=== PATIENT | male | born 1960 | race Caucasian/White ===

== ENCOUNTER 2020-04-15 11:23 | Inpatient (IN) ==
[2020-04-15 13:06] LABS: Basophils % 0.1 % (0.0-0.8); Hematocrit 47.3 VOL% (42.0-52.0); Hemoglobin 15.9 GM/DL (14.0-18.0); Immature Granulocytes % 0.8 %; Immature Granulocytes Absolute 0.06 #; Lymphocytes # 0.5 10*3/uL (1.4-4.0); Lymphocytes % 5.8 % (21.2-54.2); Mean Corpuscular HGB Conc 33.6 GM/DL (32-36); Mean Corpuscular Volume 90.3 FL (87-102); Mean Platelet Volume 8.2 FL (9.6-12.0); Monocytes % 2.7 % (1.7-12.7); Neutrophils % 90.6 % (38.7-73.9); Platelet Count 205 T/CUMM (130-400); Red Blood Count 5.24 MC/CUMM (3.8-5.5); White Blood Count 7.8 T/CUMM (4-12)
[2020-04-15] MEDS ORDERED: LEVOFLOXACIN INJ 750 MG in PREMIX 1 EACH IV STA (13:14)
[2020-04-15 13:27] LABS: Alanine Aminotransferase 55 U/L (16-61); Albumin 2.8 G/DL (3.4-5.0); Alkaline Phosphatase 103 U/L (45-117); Aspartate Amino Transferase 54 U/L (0-37); Blood Urea Nitrogen 17 MG/DL (7-18); Calcium 8.7 MG/DL (8.5-10.1); Carbon Dioxide 26 MMOL/L (21-32); Estimated Glom Filtration Rate 90 ML/MIN; Glucose 99 MG/DL (74-106); Osmolality,Calculated 265.5 MOS/KG (273-304); Potassium 4.1 MMOL/L (3.5-5.1); Sodium 132 MMOL/L (136-145); Total Protein 7.6 G/DL (6.4-8.3)
[2020-04-15] MEDS ORDERED: SODIUM CHLORIDE 0.9% 1,000 ML IV STA (13:54)
[2020-04-15] MEDS ORDERED: ACETAMINOPHEN 325 MG TABLET PO PRN (14:10)
[2020-04-15] MEDS ORDERED: hydrALAZINE 20 MG/1 ML VIAL IV PRN (14:10)
[2020-04-15] MEDS ORDERED: ONDANSETRON 4 MG/2 ML VIAL IV PRN (14:10)
[2020-04-15] MEDS ORDERED: AZITHROMYCIN INJ 500 MG in SODIUM CHLORIDE 0.9% 250 ML IV ONE (14:12)
[2020-04-15] MEDS ORDERED: ENOXAPARIN 40 MG/0.4 ML SYRINGE SUBCUT SCH (14:30)
[2020-04-15 14:32] LABS: Ferritin 1621.5 ng/ml (26-388)
[2020-04-15] MEDS ORDERED: REMDESIVIR 200 MG in SODIUM CHLORIDE 0.9% 210 ML IV ONE (15:00)
[2020-04-15] MEDS ORDERED: ENOXAPARIN 60 MG/0.6 ML SYRINGE SUBCUT ONE (17:30)
[2020-04-15] MEDS ORDERED: INFLUENZA VIRUS VACCINE 0.5 ML SYRINGE IM ONE (18:24)
[2020-04-15] MEDS: FAMOTIDINE 20 MG TABLET PO SCH (20:27)
[2020-04-15] MEDS: ASCORBIC ACID 500 MG TABLET PO SCH (20:27)
[2020-04-16 05:34] LABS: Basophils % 0.2 % (0.0-0.8); Hematocrit 41.7 VOL% (42.0-52.0); Hemoglobin 14.2 GM/DL (14.0-18.0); Immature Granulocytes % 1.5 %; Immature Granulocytes Absolute 0.07 #; Lymphocytes # 0.6 10*3/uL (1.4-4.0); Lymphocytes % 12.1 % (21.2-54.2); Mean Corpuscular HGB Conc 34.1 GM/DL (32-36); Mean Corpuscular Volume 89.3 FL (87-102); Mean Platelet Volume 8.5 FL (9.6-12.0); Neutrophils % 83.2 % (38.7-73.9); Platelet Count 175 T/CUMM (130-400); Red Blood Count 4.67 MC/CUMM (3.8-5.5); White Blood Count 4.7 T/CUMM (4-12)
[2020-04-16 05:46] LABS: Albumin 2.4 G/DL (3.4-5.0); Calcium 7.7 MG/DL (8.5-10.1); Ferritin 1876.5 ng/ml (26-388); Osmolality,Calculated 271.1 MOS/KG (273-304); Potassium 3.9 MMOL/L (3.5-5.1); Total Protein 6.2 G/DL (6.4-8.3)
[2020-04-16] MEDS ORDERED: ENOXAPARIN 100 MG/ML SYRINGE SUBCUT SCH (06:00)
[2020-04-16 06:15] LABS: Platelet Estimate Adequate
[2020-04-16] MEDS: DEXAMETHASONE 4 MG/1 ML VIAL IV SCH (10:01)
[2020-04-16] MEDS: CHOLECALCIFEROL 1,000 UNIT TABLET PO SCH (10:02)
[2020-04-16] MEDS: ASCORBIC ACID 500 MG TABLET PO SCH ×2 (10:02→21:15)
[2020-04-16] MEDS: REMDESIVIR 100 MG in SODIUM CHLORIDE 0.9% 100 ML IV SCH (10:02)
[2020-04-16] MEDS: AZITHROMYCIN 250 MG TABLET PO SCH (10:02)
[2020-04-16] MEDS: FAMOTIDINE 20 MG TABLET PO SCH ×2 (10:02→21:15)
[2020-04-16] MEDS: ZINC GLUCONATE 50 MG TABLET PO SCH (10:02)
[2020-04-16] MEDS: cefTRIAXone 1,000 MG in SYRINGE 1 EACH IV SCH (12:37)
[2020-04-16] MEDS: ENOXAPARIN 60 MG/0.6 ML SYRINGE SUBCUT SCH (18:28)
[2020-04-17 05:37] LABS: Albumin 2.4 G/DL (3.4-5.0); Bilirubin,Total 0.5 MG/DL (0.2-1.0); Calcium 7.9 MG/DL (8.5-10.1); Osmolality,Calculated 275.8 MOS/KG (273-304); Potassium 4.1 MMOL/L (3.5-5.1); Total Protein 6.4 G/DL (6.4-8.3)
[2020-04-17] MEDS: ENOXAPARIN 60 MG/0.6 ML SYRINGE SUBCUT SCH ×2 (06:32→18:17)
[2020-04-17] MEDS: CHOLECALCIFEROL 1,000 UNIT TABLET PO SCH (10:08)
[2020-04-17] MEDS: DEXAMETHASONE 4 MG/1 ML VIAL IV SCH (10:08)
[2020-04-17] MEDS: ZINC GLUCONATE 50 MG TABLET PO SCH (10:08)
[2020-04-17] MEDS: AZITHROMYCIN 250 MG TABLET PO SCH (10:08)
[2020-04-17] MEDS: FAMOTIDINE 20 MG TABLET PO SCH ×2 (10:08→20:05)
[2020-04-17] MEDS: ASCORBIC ACID 500 MG TABLET PO SCH ×2 (10:08→20:05)
[2020-04-17] MEDS: REMDESIVIR 100 MG in SODIUM CHLORIDE 0.9% 100 ML IV SCH (10:12)
[2020-04-17] MEDS: cefTRIAXone 1,000 MG in SYRINGE 1 EACH IV SCH (12:06)
[2020-04-18] MEDS: ENOXAPARIN 60 MG/0.6 ML SYRINGE SUBCUT SCH ×2 (06:13→17:42)
[2020-04-18] MEDS: ASCORBIC ACID 500 MG TABLET PO SCH ×2 (08:43→21:36)
[2020-04-18] MEDS: CHOLECALCIFEROL 1,000 UNIT TABLET PO SCH (08:43)
[2020-04-18] MEDS: AZITHROMYCIN 250 MG TABLET PO SCH (08:43)
[2020-04-18] MEDS: DEXAMETHASONE 4 MG/1 ML VIAL IV SCH (08:44)
[2020-04-18] MEDS: FAMOTIDINE 20 MG TABLET PO SCH ×2 (08:44→21:36)
[2020-04-18] MEDS: ZINC GLUCONATE 50 MG TABLET PO SCH (08:44)
[2020-04-18] MEDS: REMDESIVIR 100 MG in SODIUM CHLORIDE 0.9% 100 ML IV SCH (09:48)
[2020-04-18] MEDS: cefTRIAXone 1,000 MG in SYRINGE 1 EACH IV SCH (12:44)
[2020-04-19 05:44] LABS: Basophils % 0.2 % (0.0-0.8); Eosinophils % 0.5 % (0.00-10.9); Hematocrit 43.9 VOL% (42.0-52.0); Hemoglobin 14.9 GM/DL (14.0-18.0); Immature Granulocytes % 1.4 %; Immature Granulocytes Absolute 0.09 #; Mean Corpuscular HGB Conc 33.9 GM/DL (32-36); Mean Corpuscular Volume 88.7 FL (87-102); Mean Platelet Volume 8.5 FL (9.6-12.0); Monocytes % 8.4 % (1.7-12.7); Neutrophils % 73.5 % (38.7-73.9); Platelet Count 232 T/CUMM (130-400); Red Blood Count 4.95 MC/CUMM (3.8-5.5); Red Cell Distribution Width 11.8 % (9.3-17.3); White Blood Count 6.3 T/CUMM (4-12)
[2020-04-19 06:11] LABS: Calcium 8.5 MG/DL (8.5-10.1); Osmolality,Calculated 271.1 MOS/KG (273-304); Potassium 4.1 MMOL/L (3.5-5.1)
[2020-04-19 06:16] LABS: Platelet Estimate Normal
[2020-04-19 06:17] LABS: Burr Cells Few
[2020-04-19] MEDS: ENOXAPARIN 60 MG/0.6 ML SYRINGE SUBCUT SCH ×2 (06:44→17:38)
[2020-04-19] MEDS: ASCORBIC ACID 500 MG TABLET PO SCH ×2 (09:10→20:42)
[2020-04-19] MEDS: DOCUSATE SODIUM 100 MG CAPSULE PO PRN (09:10)
[2020-04-19] MEDS: CHOLECALCIFEROL 1,000 UNIT TABLET PO SCH (09:10)
[2020-04-19] MEDS: AZITHROMYCIN 250 MG TABLET PO SCH (09:10)
[2020-04-19] MEDS: DEXAMETHASONE 4 MG/1 ML VIAL IV SCH (09:10)
[2020-04-19] MEDS: FAMOTIDINE 20 MG TABLET PO SCH ×2 (09:10→20:42)
[2020-04-19] MEDS: ZINC GLUCONATE 50 MG TABLET PO SCH (09:10)
[2020-04-19] MEDS: REMDESIVIR 100 MG in SODIUM CHLORIDE 0.9% 100 ML IV SCH (09:10)
[2020-04-19] MEDS: cefTRIAXone 1,000 MG in SYRINGE 1 EACH IV SCH (12:00)
[2020-04-20] MEDS: ENOXAPARIN 60 MG/0.6 ML SYRINGE SUBCUT SCH ×2 (05:51→17:57)
[2020-04-20 06:08] LABS: Albumin 2.8 G/DL (3.4-5.0); Bilirubin,Total 0.6 MG/DL (0.2-1.0); Osmolality,Calculated 273.8 MOS/KG (273-304); Total Protein 6.5 G/DL (6.4-8.3)
[2020-04-20] MEDS: ZINC GLUCONATE 50 MG TABLET PO SCH (08:13)
[2020-04-20] MEDS: CHOLECALCIFEROL 1,000 UNIT TABLET PO SCH (08:13)
[2020-04-20] MEDS: ASCORBIC ACID 500 MG TABLET PO SCH ×2 (08:13→21:24)
[2020-04-20] MEDS: FAMOTIDINE 20 MG TABLET PO SCH ×2 (08:13→21:23)
[2020-04-20] MEDS: DOCUSATE SODIUM 100 MG CAPSULE PO PRN (08:13)
[2020-04-20] MEDS: DEXAMETHASONE 4 MG/1 ML VIAL IV SCH (08:14)
[2020-04-20] MEDS: LACTULOSE 20 GM/30 ML UDCUP PO PRN ×2 (08:14→17:57)
[2020-04-20] MEDS: cefTRIAXone 1,000 MG in SYRINGE 1 EACH IV SCH (11:35)
[2020-04-21 05:51] LABS: Basophils % 0.3 % (0.0-0.8); Eosinophils # 0.2 10*3/uL (0.0-0.87); Eosinophils % 2.1 % (0.00-10.9); Hematocrit 45.4 VOL% (42.0-52.0); Hemoglobin 15.4 GM/DL (14.0-18.0); Immature Granulocytes % 2.4 %; Immature Granulocytes Absolute 0.18 #; Lymphocytes # 1.4 10*3/uL (1.4-4.0); Lymphocytes % 18.6 % (21.2-54.2); Mean Corpuscular HGB Conc 33.9 GM/DL (32-36); Mean Corpuscular Volume 89.2 FL (87-102); Mean Platelet Volume 8.5 FL (9.6-12.0); Monocytes % 8.7 % (1.7-12.7); Neutrophils % 67.9 % (38.7-73.9); Platelet Count 253 T/CUMM (130-400); Red Blood Count 5.09 MC/CUMM (3.8-5.5); Red Cell Distribution Width 11.7 % (9.3-17.3); White Blood Count 7.6 T/CUMM (4-12)
[2020-04-21] MEDS: ENOXAPARIN 60 MG/0.6 ML SYRINGE SUBCUT SCH ×2 (05:57→18:01)
[2020-04-21 06:29] LABS: Albumin 2.6 G/DL (3.4-5.0); Bilirubin,Total 0.5 MG/DL (0.2-1.0); Calcium 8.5 MG/DL (8.5-10.1); Osmolality,Calculated 270.1 MOS/KG (273-304); Potassium 4.2 MMOL/L (3.5-5.1); Total Protein 6.7 G/DL (6.4-8.3)
[2020-04-21] MEDS: ZINC GLUCONATE 50 MG TABLET PO SCH (08:06)
[2020-04-21] MEDS: FAMOTIDINE 20 MG TABLET PO SCH ×2 (08:06→21:01)
[2020-04-21] MEDS: ASCORBIC ACID 500 MG TABLET PO SCH ×2 (08:06→21:01)
[2020-04-21] MEDS: CHOLECALCIFEROL 1,000 UNIT TABLET PO SCH (08:06)
[2020-04-21] MEDS: DOCUSATE SODIUM 100 MG CAPSULE PO PRN (08:06)
[2020-04-21] MEDS: LACTULOSE 20 GM/30 ML UDCUP PO PRN (08:06)
[2020-04-21] MEDS: DEXAMETHASONE 4 MG/1 ML VIAL IV SCH (08:07)
[2020-04-21] MEDS: cefTRIAXone 1,000 MG in SYRINGE 1 EACH IV SCH (11:07)
[2020-04-22] MEDS: ENOXAPARIN 60 MG/0.6 ML SYRINGE SUBCUT SCH (05:22)
[2020-04-22] MEDS: CHOLECALCIFEROL 1,000 UNIT TABLET PO SCH (08:14)
[2020-04-22] MEDS: ZINC GLUCONATE 50 MG TABLET PO SCH (08:14)
[2020-04-22] MEDS: DEXAMETHASONE 4 MG/1 ML VIAL IV SCH (08:14)
[2020-04-22] MEDS: FAMOTIDINE 20 MG TABLET PO SCH (08:14)
[2020-04-22] MEDS: ASCORBIC ACID 500 MG TABLET PO SCH (08:14)
[2020-04-22 11:40] VITALS: BP 122/70
[2020-04-22] MEDS: cefTRIAXone 1,000 MG in SYRINGE 1 EACH IV SCH (11:47)
== END 2020-04-22 17:00 | disposition home health service (06) | DRG 177 ==
LOC: N.ED 11:23 → SUATTDRO 14:10 → N.EDINP 14:10 → N.2E 17:03
PROVIDERS: ADMIT Internal Medicine; ATTEND Internal Medicine